=== PATIENT | female | born 1980 | race Caucasian/White ===

== ENCOUNTER → 2023-06-26 19:22 | Outpatient (REF) | payer OTHER, SELFPAY | LOC: WDC 19:22 | PROVIDERS: ATTENDING PHYSICIAN Obstetrics & Gynecology; FAMILY PHYSICIAN Family Medicine | DX: Z12.31 Encounter for screening mammogram for malignant neoplasm of breast (principal) | CPT/HCPCS: 77063; 77067 ==

== ENCOUNTER → 2023-10-22 08:01 | Outpatient (REF) | payer OTHER, SELFPAY | LOC: WDC 08:01 | PROVIDERS: ATTENDING PHYSICIAN Obstetrics & Gynecology; FAMILY PHYSICIAN Family Medicine | DX: R92.2 Inconclusive mammogram (principal) | CPT/HCPCS: 76641 ==

== ENCOUNTER → 2024-06-29 15:24 | Outpatient (REF) | payer OTHER, SELFPAY | LOC: WDC 15:24 | PROVIDERS: ATTENDING PHYSICIAN Student in an Organized Health Care Education/Training Program; FAMILY PHYSICIAN Family Medicine | DX: Z12.31 Encounter for screening mammogram for malignant neoplasm of breast (principal) | CPT/HCPCS: 77063; 77067 ==

== ENCOUNTER → 2024-09-30 10:58 | Outpatient (REF) | payer OTHER, SELFPAY | LOC: WDC 10:58 | PROVIDERS: ATTENDING PHYSICIAN Student in an Organized Health Care Education/Training Program; FAMILY PHYSICIAN Family Medicine | DX: R92.2 Inconclusive mammogram (principal) | CPT/HCPCS: 76641 ==

== ENCOUNTER 2025-03-18 13:03 | Emergency (ER) | payer OTHER, SELFPAY ==
[2025-03-18 13:08] VITALS: BP 120/79
--- NOTE | 2025-03-18 14:29 | ED.GENMED ---
History of Present Illness
General
Chief Complaint: Skin Surface Trauma
Source: patient
Exam Limitations: none
Time Seen by Provider: 03/18/25 14:10
Nursing documentation reviewed up to this point in time: agreed with
History of Present Illness
History of Present Illness:
Patient is a 44 female who presents to the ER for evaluation of left thumb laceration. Patient was cutting butternut squash and accidentally cut her left thumb. She is right-hand dominant. She is unsure last tetanus. She denies any bony pain.
Phy Exam
General Physical Exam
General Presentation: no apparent distress
General age: appears stated age
General Skin: warm and dry
General Habitus: normal
General Mental: alert
General Hydration: appears well hydrated
Neurological Exam
Neurological Exam: alert and oriented x3
Musculoskeletal Exam
Musculoskeletal Exam: full ROM and other (Left upper extremity strong pulses patient with 1 cm partial-thickness laceration to distal phalanx of thumb no swelling full flexion /extension intact sensation nml cap refill )
Skin Exam
Skin Exam: normal color and warm/dry
Psychiatric Exam
Psychiatric Exam: normal mood/affect
Course
Orders/Labs/Results
Orders:
Orders
03/18/25 14:30
Tetanus/Diphth/Acelpertussis [Adacel] 0.5 ml IM .ONCE ONE
Vital Signs
Initial and Last Documented VS:
Initial Vital Signs
Temp Pulse Resp BP Pulse Ox
98.0 F 81 16 120/79 98
03/18/25 13:08 03/18/25 13:08 03/18/25 13:08 03/18/25 13:08 03/18/25 13:08
Last Documented Vital Signs
Temp Pulse Resp BP Pulse Ox
98.0 F 81 16 120/79 98
03/18/25 13:08 03/18/25 13:08 03/18/25 13:08 03/18/25 13:08 03/18/25 14:30
Procedures
Laceration Closure
First Finger:
Status of Wound: clean
Size of Wound in cm: 1
Description of Wound Edges: sharp and flap-well vascularized
Preparation: cleaned with saline
Type of Closure: other (Steri-Strips)
MDM/Problems Addressed
Differential Diagnosis Includes:
Not limited to laceration
MDM/Problems Addressed:
Simple partial-thickness laceration to left thumb repaired as documented with Steri-Strips. No bony injury full flexion no tendon injury tetanus updated wound care reviewed.
*Pulse Oximetry
SaO2: 98
Oxygen Mode of Delivery: Room air
Patient hypoxic: no
*Critical Care Note
Total Time (30-74mins, 75-104mins- exclusive of procedures): Not Applicable
ED Attending Note
-
Portions of this chart may have been created with voice recognition software.� Occasional wrong word or��sound alike� substitutions may have occurred due to the inherent limitations of voice recognition software.
Discharge Plan
Departure
Patient Disposition: Home (Routine Discharge)
Date of Disposition: 03/18/25
Time of Disposition: 14:31
Patient with high blood pressure during this ER visit?: No
Condition: Fair
Covid-19: Not Applicable
Discharge Problem:
Laceration
Instructions: Wound Care (DC), Laceration
Prescriptions:
No Action
prenat.vits,kodi,gco-klhy-qhqae [ Vitamin] 1 TAB tablet
Referrals:
Forrest Silvestre MD [Family Provider, Family Practice]
Activity Restrictions/Additional Instructions:
Keep clean and dry for 24 hours after 24 hours you may lightly wet wound. Trim Steri-Strips as needed. Return if any signs infection of increased pain swelling redness drainage fever chills. You were updated on tetanus today. Follow-up with your
family doctor in the next several days as needed for wound check.
Interventions
Interventions:
*Risk Screen - Suicide Last Done: 03/18/25 13:08
*Neglect/Abuse Screening Last Done: 03/18/25 13:08
ED-Skin Assessment Last Done: 03/18/25 13:19
Discharge Date and Time
Print Language: MONTSERRATIAN
[2025-03-18] MEDS: ADACEL 0.5 ML IM (15:06)
== END 2025-03-18 15:14 | disposition home or self-care (01) ==
LOC: EMR 13:03
PROVIDERS: EMERGENCY PHYSICIAN Emergency Medicine; FAMILY PHYSICIAN Family Medicine
DX: S61.012A Laceration without foreign body of left thumb without damage to nail, initial encounter (principal); W26.9XXA Contact with unspecified sharp object(s), initial encounter; Y93.G1 Activity, food preparation and clean up; Z23 Encounter for immunization
CPT/HCPCS: 99282; 90471; 90715

== ENCOUNTER → 2025-04-08 08:01 | Outpatient (REF) | payer OTHER, SELFPAY | LOC: HWRAD 08:01 | PROVIDERS: ATTENDING PHYSICIAN Student in an Organized Health Care Education/Training Program; FAMILY PHYSICIAN Family Medicine | DX: R22.2 Localized swelling, mass and lump, trunk (principal) | CPT/HCPCS: 76705 ==

== ENCOUNTER 2025-05-11 05:47 | Day surgery (SDC) | payer OTHER, SELFPAY ==
[2025-05-11 06:15] VITALS: BP 125/77; BMI 23.0
[2025-05-11 06:33] VITALS: BMI 23.0
[2025-05-11] MEDS: NORMOSOL-R/PLASMALYTE-A 1000 IV (06:39)
[2025-05-11] MEDS: TYLENOL 1000 MG PO (06:39)
--- NOTE | 2025-05-11 06:56 | W.SUR.PREOP ---
Pre-Operative Surgical Note
-
I have examined this patient prior to the performance of the scheduled procedure.
The patient's condition is unchanged from the time of the current History and
Physical and the patient is able to undergo the scheduled procedure.
[2025-05-11 07:58] VITALS: BP 103/59
[2025-05-11 08:02] VITALS: BP 113/51
--- NOTE | 2025-05-11 08:03 | W.IMMPOSTOP ---
Surgical Immed Post Op Note
-
Primary Surgeon: Rai Koo MD
Assisting Surgeon: None
Pre-op Diagnosis: Left lower quadrant abdominal wall subcutaneous mass
Post-op Diagnosis: Same
Procedure Performed: Excision of an abdominal wall subcutaneous mass
Anesthesia Type: General
Specimen / Cultures: Abdominal wall subcutaneous mass
Estimated Blood Loss: 1 cc
Complications: None
Operative Findings: Multiple firm masses noted in the subcutaneous tissue, scattered areas of fat necrosis taken en bloc with the surrounding tissue. Wound measured 4 x 3 x 2 cm. No palpable disease left behind. The wound was then closed in
layers with 3-0 Vicryl sutures followed by Dermabond.
--- NOTE | 2025-05-11 08:06 | OR.RPT ---
Operative Report
Operative Report
Patient Name: Rola Aj
: 1980
Date of Operation: 05/11/2025
Preoperative Diagnosis: Left lower quadrant abdominal wall subcutaneous mass
Postoperative Diagnosis: Same
Procedure(s):
Excision of an abdominal wall subcutaneous mass
Surgeon(s):
Dr. Koo
Sign Manufacturer(s):
AMRITA Garcia
Anesthesia: MAC
Estimated Blood Loss: 1 cc
Urine Output: None
Drains/Lines/Implants: None
Specimens:
1. Abdominal wall subcutaneous mass
Indication for surgery:
This is a 44-year-old female who presents with a mildly symptomatic left lower quadrant subcutaneous mass confirmed on ultrasound to be multiple cystic structures. After evaluation in the office they were diagnosed with a subcutaneous mass. After
discussion of risk benefits and alternatives they elected and were consented for surgery.
Operative Findings: Multiple firm masses noted in the subcutaneous tissue, scattered areas of fat necrosis taken en bloc with the surrounding tissue. Wound measured 4 x 3 x 2 cm. No palpable disease left behind. The wound was then closed in
layers with 3-0 Vicryl sutures followed by Dermabond.
Details of the operation:
The patient was brought to the operating room a placed in the supine position. After appropriate sedation by anesthesia, the area of the left lower quadrant was prepped and draped in the usual fashion. A linear incision over natural skin line was
made over the mass and carried down through the subcutaneous tissue. Multiple firm white masses were identified and somewhat adherent to the surrounding tissue which was taken en bloc. 2 were identified and removed in this manner. No residual
palpable disease was left. The specimen and wound measured 4 x 3 x 2 cm. The cavity was irrigated and hemostasis was achieved. The space was closed with interrupted 3-0 Vicryl sutures. The dermis was then approximated using interrupted 3-0 Vicryl
sutures followed by dermabond. All counts were correct at the end of procedure. The patient was then transferred to the PACU for recovery.
I was the attending physician and performed the procedure with assistance of the PA above. Their assistance was required due to the complexity of the procedure. During the procedure they assisted with retraction, resection, and closure of the
wound. I was present for all portions of the case, excluding skin closure.
Rai Koo MD
[2025-05-11 08:15] VITALS: BP 110/69
[2025-05-11 08:30] VITALS: BP 103/66
[2025-05-11] MEDS: ERYTHROMYCIN 0.5% OPHTHALMIC OINTMENT 1 APPLIC OPHTH (08:39)
[2025-05-11 08:45] VITALS: BP 112/69
== END 2025-05-11 09:05 | disposition home or self-care (01) ==
LOC: SDS 05:47
PROVIDERS: ATTENDING PHYSICIAN Surgery
DX: M79.89 Other specified soft tissue disorders (principal)
CPT/HCPCS: 22903; 88304